=== PATIENT | male | born 1960 | race Caucasian/White ===

== ENCOUNTER 2022-06-01 11:45 | Observation (INO) ==
[2022-06-01] MEDS ORDERED: Ondansetron 4 mg VIAL 2 MG/ML 2 ml VIAL ONE (12:24)
[2022-06-01] MEDS ORDERED: Dexamethasone IV 4 MG/ML VIAL 1 ml VIAL ONE ×2 (12:24)
[2022-06-01] MEDS ORDERED: Ondansetron 4 mg VIAL 2 MG/ML 2 ml VIAL IM ONE (12:24)
[2022-06-01] MEDS ORDERED: Scopolamine 1 mg/72hr PATCH ONE ×2 (12:52)
[2022-06-01] MEDS ORDERED: Magnesium Sulfate 2 gm BAG 2 GM/50 ML BAG IV ONE (14:12)
[2022-06-01] MEDS ORDERED: Magnesium Sulfate 2 gm BAG 2 GM/50 ML BAG ONE (14:12)
[2022-06-01] MEDS ORDERED: KCL 10 MEQ/50 ML IVPREMIX 20 MEQ/100 ML BAG ONE (14:18)
[2022-06-01] MEDS ORDERED: KCL 10 MEQ/50 ML IVPREMIX 20 MEQ/100 ML BAG IV ONE (14:18)
[2022-06-01] MEDS ORDERED: Famotidine IV 10 MG/ML 2 ml VIAL (20 mg) ONE ×2 (16:03)
[2022-06-01] MEDS ORDERED: Ondansetron ODT 4 mg TAB 4 MG TAB SL PRN (16:28)
[2022-06-01] MEDS: NS 0.9% 1000 ml BAG 1,000 ML IV SCH (18:03)
[2022-06-01] MEDS ORDERED: KCL 20 MEQ/100 ML IVPREMIX 20 MEQ/100 ML BAG IV ONE (20:54)
[2022-06-01] MEDS ORDERED: Benzocaine/Menthol LOZ MT PRN (21:14)
[2022-06-01] MEDS: Sucralfate 1 gm SUSP 1 GM/10 ML UDC PO SCH (22:01)
[2022-06-01] MEDS: Famotidine IV 10 MG/ML 2 ml VIAL (20 mg) IV SLOW PU SCH (22:02)
[2022-06-02] MEDS: NS 0.9% 1000 ml BAG 1,000 ML IV SCH (05:04)
[2022-06-02 05:11] LABS: Hematocrit 28 % (42-52); Hemoglobin 10.2 g/dL (14.0-18.0); Mean Corpuscular HGB Conc 36 g/dL (31-36); Mean Corpuscular Hemoglobin 32 pg (27-31); Mean Corpuscular Volume 90 fL (80-94); Mean Platelet Volume 8.1 fL (7.4-10.4); Platelet Count 102 10^3/uL (150-450); Red Blood Count 3.17 10^6 /uL (4.18-5.48); Red Cell Distribution Width 16 % (10-15); White Blood Count 1.7 10^3/uL (3.5-10.8)
[2022-06-02 05:17] LABS: ABS Neutrophils 0.9 10^3/ul (1.5-7.7)
[2022-06-02 05:36] LABS: Albumin 3.2 g/dL (3.2-5.2); Albumin/Globulin Ratio 1.1 (1-3); Creatinine, Serum 0.69 mg/dL (0.67-1.17); Globulin 2.9 g/dL (2-4); Magnesium 1.9 mg/dL (1.9-2.7); Potassium 3.7 mmol/L (3.5-5.0); Total Bilirubin 0.8 mg/dL (0.2-1.0); Total Protein 6.1 g/dL (6.4-8.9)
[2022-06-02 07:06] LABS: ABS Lymphocytes 0.4 10^3/ul (1.0-4.8); ABS Monocytes 0.4 10^3/ul (0-0.8); Eosinophil % 0.5 %; Lymphocyte % 24.7 %; Nucleated Red Blood Cells % 0.1
[2022-06-02 07:17] VITALS: BP 155/66
[2022-06-02] MEDS: Sucralfate 1 gm SUSP 1 GM/10 ML UDC PO SCH (07:32)
[2022-06-02] MEDS: Famotidine IV 10 MG/ML 2 ml VIAL (20 mg) IV SLOW PU SCH (08:58)
[2022-06-02] MEDS ORDERED: VARENICLINE 0.5 MG PO SCH (09:00)
[2022-06-02] MEDS ORDERED: Fluticasone NASAL SPRAY 50MCG 16 gm SPRAY BTL INTRANASAL SCH (09:00)
[2022-06-02] MEDS ORDERED: Pantoprazole VIAL 40 MG VIAL IV SCH (09:00)
[2022-06-02] MEDS ORDERED: Enoxaparin 40 MG/0.4 ML SYR SUBCUT SCH (10:00)
[2022-06-02] MEDS ORDERED: Phenol 1.4% Throat Spray BTL MT PRN (10:23)
== END 2022-06-02 11:00 | disposition home or self-care (01) ==
LOC: MED 11:45 → CHOAEAST 11:45 → SUATTDRO 17:37 → MED 17:57
PROVIDERS: ADMIT Internal Medicine Medical Oncology; ATTEND Internal Medicine Hematology & Oncology